=== PATIENT | male | born 1950 | race Caucasian/White ===

== ENCOUNTER 2018-01-10 07:09 | Outpatient (CLI) | payer OTHER ==
[~2018-01-10 07:09] MED LIST: ATHLETE'S FOOT24 GM TP; BENADRYL50 MG PO; CLEOCIN HCL300 MG PO; METHOCARBAMOL500 MG PO; NYSTATIN-TRIAMC15 GM TP
== END 2018-01-10 07:13 | disposition home or self-care (01) ==
LOC: SONOGRAMA 07:09
DX: E04.1 Nontoxic single thyroid nodule (principal)

== ENCOUNTER 2018-05-04 07:47 | Outpatient (CLI) | payer OTHER ==
[~2018-05-04] VITALS: Ht 172.7 cm; Wt 83.9 kg
[2018-05-04] MEDS ORDERED: CLARITIN10 MG PO (09:13)
[2018-05-04] MEDS ORDERED: ZANTAC300 MG PO (09:13)
== END 2018-05-04 08:10 | disposition home or self-care (01) ==
LOC: OFIC 805 07:47
DX: R05 Cough (principal); J37.0 Chronic laryngitis; R49.8 Other voice and resonance disorders; J31.0 Chronic rhinitis

== ENCOUNTER 2018-08-10 07:26 | Outpatient (CLI) | payer OTHER ==
[~2018-08-10] VITALS: Ht 152.4 cm; Wt 83.9 kg
[~2018-08-10 07:26] MED LIST changes: +CLARITIN10 MG PO; +ZANTAC300 MG PO
[2018-08-10] MEDS ORDERED: ZANTAC300 MG PO (08:49)
== END 2018-08-10 07:40 | disposition home or self-care (01) ==
LOC: OFIC 805 07:26
DX: R05 Cough (principal); J37.0 Chronic laryngitis; J31.0 Chronic rhinitis; J38.1 Polyp of vocal cord and larynx

== ENCOUNTER 2018-08-17 07:32 | Outpatient (CLI) | payer OTHER ==
[~2018-08-17] VITALS: Ht 152.4 cm; Wt 83.9 kg
== END 2018-08-17 07:45 | disposition home or self-care (01) ==
LOC: OFIC 805 07:32
DX: J31.0 Chronic rhinitis (principal); R05 Cough; J38.1 Polyp of vocal cord and larynx

== ENCOUNTER 2018-09-21 07:14 | Outpatient (CLI) | payer OTHER ==
[~2018-09-21] VITALS: Ht 152.4 cm; Wt 83.9 kg
[2018-09-21] MEDS ORDERED: ZANTAC300 MG PO (09:27)
== END 2018-09-21 07:30 | disposition home or self-care (01) ==
LOC: OFIC 805 07:14
DX: J37.0 Chronic laryngitis (principal); R49.8 Other voice and resonance disorders; J31.0 Chronic rhinitis; J38.1 Polyp of vocal cord and larynx

== ENCOUNTER 2018-11-23 07:18 | Outpatient (CLI) | payer OTHER ==
[~2018-11-23] VITALS: Ht 152.4 cm; Wt 83.9 kg
[2018-11-23] MEDS ORDERED: ZYRTEC10 MG PO (09:20)
[2018-11-23] MEDS ORDERED: ZANTAC150 M3 PO (09:21)
== END 2018-11-23 07:35 | disposition home or self-care (01) ==
LOC: OFIC 805 07:18
DX: R05 Cough (principal); J37.0 Chronic laryngitis; J31.0 Chronic rhinitis; J38.1 Polyp of vocal cord and larynx

== ENCOUNTER 2021-07-31 07:26 | Outpatient (CLI) | payer OTHER ==
[~2021-07-31 07:26] MED LIST changes: +ZANTAC150 M3 PO; +ZYRTEC10 MG PO
== END 2021-07-31 07:49 | disposition home or self-care (01) ==
LOC: SONOGRAMA 07:26
PROVIDERS: ATTEND General Practice
DX: R10.9 Unspecified abdominal pain (principal); M25.78 Osteophyte, vertebrae; R52 Pain, unspecified

== ENCOUNTER 2022-02-24 09:45 | Outpatient (CLI) | payer OTHER | END 2022-02-24 09:46 | disposition home or self-care (01) | LOC: LAB 09:45 | PROVIDERS: ATTEND General Practice | DX: R97.20 Elevated prostate specific antigen [PSA] (principal); R35.89 Other polyuria; R32 Unspecified urinary incontinence ==

== ENCOUNTER 2022-02-25 07:25 | Outpatient (CLI) | payer OTHER | END 2022-02-25 07:39 | disposition home or self-care (01) | LOC: TOM 07:25 | PROVIDERS: ATTEND General Practice | DX: R32 Unspecified urinary incontinence (principal); R21 Rash and other nonspecific skin eruption; I10 Essential (primary) hypertension; F10.20 Alcohol dependence, uncomplicated; Z13.89 Encounter for screening for other disorder; Z13.220 Encounter for screening for lipoid disorders; Z13.228 Encounter for screening for other metabolic disorders ==